=== PATIENT | female | born 1995 | race Caucasian/White ===

== ENCOUNTER 2017-02-11 13:36 | Emergency (ER) | payer OTHER ==
[~2017-02-11] VITALS: Ht 160 cm; Wt 66.5 kg
[~2017-02-11 13:36] MED LIST: BCPILLS PO
[2017-02-11 13:43] VITALS: BP 124/87; PULSE 84; TEMP 36.6; O2SAT 99; Ht 160 cm; Wt 66.5 kg
[2017-02-11] MEDS ORDERED: SERT-234 PO (13:55)
--- NOTE | 2017-02-11 14:18 | DIAGNOSTIC IMAGING REPORT ---
LEFT SHOULDER MIN 2 VIEWS ROUTINE HISTORY: 21 years-old Female left shoulder pain, fall acute left shoulder pain status post fall. Initial exam. COMPARISON: None available. TECHNIQUE: 3 views of the left shoulder. FINDINGS: 5 mm elevation of the distal clavicle is noted in relation to the acromion without significant AC joint space widening. Mild associated soft tissue prominence is seen within this distribution. There is no acute fracture identified. Glenohumeral joint is located. Imaged lung christianson are clear without opaque foreign body. IMPRESSION: 1. No acute fracture. 2. 5 mm elevation of the distal clavicle in relation to the acromion with mild adjacent soft tissue swelling is suspicious for grade II AC joint injury. Correlate with physical exam. The above report was generated using voice recognition software. It may contain grammatical, syntax or spelling errors. Electronically signed by: Gabriel Sierra M.D. 02/11/2017 2:17 PM Dictated Date/Time: 02/11/2017 2:14 PM
--- NOTE | 2017-02-11 14:29 | EMERGENCY ROOM VISIT NOTE ---
History First contact with patient: 13:49 Chief Complaint: SHOULDER PAIN Stated Complaint: IMMENSE SHOULDER PAIN, LIMITED MOBILITY, FALL History of Present Illness The patient is a 21 year old female who presents to the Emergency Room with complaints of right shoulder pain. The patient states that she was getting a piggyback ride from a friend weight last night when she fell and landed onto her left shoulder. She states that she landed directly onto concrete. She took ibuprofen last night without relief. She rates her discomfort an 8.5/10. The patient states that she hit her head slightly, but denies any head or neck pain. She denies any numbness or tingling. Her range of motion is limited due to pain. She denies any previous injuries to the shoulder. Review of Systems A complete 6 point review of systems was reviewed with the patient with pertinent positives and negatives as per history of present illness. All else were negative. Social History Smoking Status: Never Smoker Current/Historical Medications Scheduled Control Pills ( Control Pills), 1 TAB PO DAILY Sertraline (Zoloft), 150 MG PO QAM Allergies Coded Allergies: No Known Allergies (Unverified , 02/11/17) Physical Exam Vital Signs Date Time Temp Pulse Resp B/P (MAP) Pulse Ox O2 Delivery O2 Flow Rate FiO2 02/11/17 13:43 36.6 84 18 124/87 99 Room Air Physical Exam VITALS: Vitals are noted on the nurse's note and reviewed by myself. Vital signs stable. GENERAL: This is a 21-year-old female, in no acute distress, nondiaphoretic, well-developed well-nourished. MUSCULOSKELETAL: There is tenderness to palpation of the left distal clavicle. Decreased range of motion of the left upper extremity secondary to pain. Trash Collector strength 5/5. NEURO: Patient was alert and oriented to person place and time. Normal sensation to light and sharp touch. Medical Decision & Procedures ER Provider Diagnostic Interpretation: LEFT SHOULDER MIN 2 VIEWS ROUTINE HISTORY: 21 years-old Female left shoulder pain, fall acute left shoulder pain status post fall. Initial exam. COMPARISON: None available. TECHNIQUE: 3 views of the left shoulder. FINDINGS: 5 mm elevation of the distal clavicle is noted in relation to the acromion without significant AC joint space widening. Mild associated soft tissue prominence is seen within this distribution. There is no acute fracture identified. Glenohumeral joint is located. Imaged lung christianson are clear without opaque foreign body. IMPRESSION: 1. No acute fracture. 2. 5 mm elevation of the distal clavicle in relation to the acromion with mild adjacent soft tissue swelling is suspicious for grade II AC joint injury. Correlate with physical exam. Medical Decision Differential diagnosis includes clavicle fracture, humerus fracture, dislocation , contusion, sprain, AC separation, among others. The patient is a 21-year-old female who presents today complaining of left shoulder pain. X-ray showed findings consistent with an acromioclavicular joint separation. Patient was placed in an arm sling and given information for orthopedic follow-up. Conservative measures were discussed with the patient. She verbalized understanding of my assessment and treatment plan and was discharged home in good condition. Impression Primary Impression: Acromioclavicular separation Departure Information Dispostion Home / Self-Care Condition GOOD Referrals No Doctor, Assigned (PCP) Patient Instructions My [facility], Treatment for Shoulder Separation Additional Instructions You have been treated in the Emergency Department for Shoulder Pain. X-ray showed an AC (acromioclavicular) joint separation. For pain control, you can use the following [id number]-vudyckl medicines (if >12 yo): - Regular strength (325mg/tab) Tylenol (acetaminophen) 2 tabs every 4-6 hours as needed. Do not exceed 12 tablets in a 24 hour period. Avoid taking more than 4 grams (4000 mg) of Tylenol per day. This includes any other sources of acetaminophen you may take on a regular basis. - Regular strength (200 mg/tab) Advil (ibuprofen) 1-2 tabs every 4-6 hours as needed. Do not exceed a dose of 3200 mg per day. If this is a recent injury (<24 hrs), ice can be applied to the area of pain for the first 3 days to help decrease pain and inflammation. You have been provided the number for an Orthopaedic Surgeon. You should call this number as soon as possible to establish a follow-up visit from today's Emergency Department visit. Keep the sling in place until evaluated by Orthopedics. Take the sling off a few times a day to perform range of motion exercises with shoulder. Return to the Emergency Department if your current symptoms worsen despite treatment course outlined above, or if you develop any of the following symptoms : intractable pain despite aforementioned treatment course or new onset of numbness or tingling of the arm. Problem Qualifiers Primary Impression: Acromioclavicular separation Encounter type: initial encounter Laterality: left Qualified Codes: S43.102A - Unspecified dislocation of left acromioclavicular joint, initial encounter
== END 2017-02-11 14:42 | disposition home or self-care (01) ==
LOC: C.EDB 13:39 → C.EDD 14:42
DX: S43.102A Unspecified dislocation of left acromioclavicular joint, initial encounter (principal); W17.89XA Other fall from one level to another, initial encounter; Y92.9 Unspecified place or not applicable; Z79.3 Long term (current) use of hormonal contraceptives; Z79.899 Other long term (current) drug therapy

== ENCOUNTER 2017-10-02 09:57 | Emergency (ER) | payer OTHER ==
[~2017-10-02] VITALS: Ht 160 cm; Wt 67.3 kg
[~2017-10-02 09:57] MED LIST changes: +SERT-234 PO
[2017-10-02 10:05] VITALS: TEMP 37; Ht 160 cm; Wt 67.3 kg
[2017-10-02] MEDS ORDERED: IBUP-1050 PO (11:14)
[2017-10-02] MEDS ORDERED: PENI-82 PO (11:20)
[2017-10-02] MEDS ORDERED: PENICILLIN V POTASSIUM 250 MG TAB PO ONE (11:30)
[2017-10-02 11:40] VITALS: BP 124/73; PULSE 98; O2SAT 98
--- NOTE | 2017-10-02 14:08 | EMERGENCY ROOM VISIT NOTE ---
History Report prepared by Samantha: Azam Browning Under the Supervision of: Dr. Juan Balbuena D.O. First contact with patient: 10:09 Chief Complaint: SORETHROAT Stated Complaint: SORETHROAT,SWOLLEN TONSILS,FEVER History of Present Illness The patient is a 22 year old female who presents to the Emergency Room with complaints of a persistent fever that began yesterday. The patient's fever was 102.8 at its worse last night. She is also complaining of a sorethroat and muscle aches. Her sorethroat is worsened by swallowing. She has no history of mono, but has had streptococcus pharyngitis 4 times in the past. She denies any abdominal pain, chest pain, shortness of breath, or urinary symptoms. No remitting factors. She is tolerating clears. Source of History: patient Onset: Yesterday Position: throat Symptom Intensity: 102.8 fever last night Quality: other (Sorethroat) Timing: other (persistent) Associated Symptoms: No chest pain, No SOB, No urinary symptoms Review of Systems See HPI for pertinent positives & negatives. A total of 10 systems reviewed and were otherwise negative. Social History Smoking Status: Never Smoker Current/Historical Medications Scheduled Control Pills ( Control Pills), 1 TAB PO 1200 Ibuprofen (Advil), 400 MG PO UD Penicillin V Potassium (Veetids), 500 MG PO BID Sertraline (Zoloft), 150 MG PO 1200 Allergies Coded Allergies: No Known Allergies (Unverified , 10/02/17) Physical Exam Vital Signs Date Time Temp Pulse Resp B/P (MAP) Pulse Ox O2 Delivery O2 Flow Rate FiO2 10/02/17 11:40 98 16 124/73 98 10/02/17 10:09 97 Room Air 10/02/17 10:05 37.0 90 18 121/79 98 Room Air Physical Exam GENERAL: Sitting up in bed, alert, well appearing, well nourished, no distress, non-toxic EYE EXAM: normal conjunctiva. OROPHARYNX: Mucous membranes are moist, bilateral tonsillar exudates and erythema present, there are no signs of abscess or submandibular swelling. Tolerating secretions. Normal phonation. NECK: supple, no nuchal rigidity, + anterior cervical lymph adenopathy, non- tender LUNGS: Clear to auscultation. Normal chest wall mechanics HEART: no murmurs, S1 normal and S2 normal ABDOMEN: abdomen soft, non-tender, normo-active bowel sounds, no masses, no rebound or guarding. SKIN: no rashes and no bruising UPPER EXTREMITIES: upper extremities are grossly normal. LOWER EXTREMITIES: No pitting edema. NEURO EXAM: Normal sensorium, cranial nerves II-XII grossly intact, normal speech, no gross weakness of arms, no gross weakness of legs. Medical Decision & Procedures Medications Administered Medications (Trade) Dose Ordered Sig/Annelise Route Start Time Stop Time Status Last Admin Dose Admin Penicillin V Potassium (Veetids Tab) 500 mg ONE ONCE PO 10/02/17 11:30 10/02/17 11:31 DC 10/02/17 11:26 500 MG ED Course ED COURSE: Vital signs were reviewed and showed normal vitals. The patients medical record was reviewed The above diagnostic studies were performed and reviewed. ED treatments and interventions as stated above. 1011: The patient was evaluated in room C5. A complete history and physical examination was performed. 1130: Ordered Penicillin V Potassium 500 mg PO. 1131: Upon reevaluation, the patient is resting in bed.I discussed my findings with the patient and she understands and agrees with the treatment plan. Based on the patients age, coexisting illnesses, exam and lab findings the decision to treat as an outpatient was made. The patient remained stable while under my care. The patient appeared well at the time of discharge. Medical Decision Differential diagnosis: Etiologies such as viral syndrome, tonsillitis, streptococcal pharyngitis, mononucleosis, peritonsillar abscess, retropharyngeal abscess, otitis, pneumonia , influenza, as well as others were entertained. Patient is a 22-year-old female who presents the ER for sore throat associated with fevers and muscle aches. On exam she does have bilateral tonsillar exudates. Positive lymphadenopathy. Rapid strep was negative. No other complaints. Vitals are stable. To believe that this most consistent with a pharyngitis. Offered watch and wait until culture first treatment. She preferred to be treated at this time. Patient was discharged and given a dose here of Pen-Vee K. Discussed with Pt concerning signs and symptoms to watch out for. Pt was instructed to follow up with their PCP and discussed with the patient their option to return to the ED at anytime for persistent or worsening symptoms. The appropriate anticipatory guidance and out-patient management, including indications for return to the emergency department, were explained at length to the patient and understood. Medication Reconcilliation Current Medication List: was personally reviewed by me Blood Pressure Screening Patient's blood pressure: Normal blood pressure Impression Primary Impression: Acute pharyngitis Scribe Attestation The scribe's documentation has been prepared under my direction and personally reviewed by me in its entirety. I confirm that the note above accurately reflects all work, treatment, procedures, and medical decision making performed by me. Departure Information Dispostion Home / Self-Care Prescriptions Penicillin V Potassium (Veetids) 500 Mg Tab 500 MG PO BID, #20 TAB Prov: Juan Balbuena, DO 10/02/17 Referrals No Doctor, Assigned (PCP) Forms HOME CARE DOCUMENTATION FORM, IMPORTANT VISIT INFORMATION Patient Instructions My [facility] Additional Instructions Please follow up with your primary care doctor or if you are a student, [facility] with in the next 24 hours. Any worsening of your symptoms, please return to the ED immediately. This includes any fevers greater than 100.4, inability to swallow, increased swelling in her mouth, worsening pain, chest pain, shortness breath, persistent nausea, vomiting, unable to eat or drink, or any other concerning signs or symptoms from your standpoint. Please take Tylenol or Motrin as needed for pain. Please take antibiotics as prescribed. Problem Qualifiers Primary Impression: Acute pharyngitis Pharyngitis/tonsillitis etiology: unspecified etiology Qualified Codes: J02.9 - Acute pharyngitis, unspecified
== END 2017-10-02 11:40 | disposition home or self-care (01) ==
LOC: C.EDB 09:57 → C.EDC 11:40
DX: J02.9 Acute pharyngitis, unspecified (principal)